=== PATIENT | male | born 1985 | race African-American/Black ===

== ENCOUNTER 2020-05-14 07:53 | Emergency (ER) | payer MEDICAID ==
[~2020-05-14] VITALS: Ht 170.2 cm; Wt 102.1 kg
[2020-05-14 08:32] VITALS: BP 151/95
== END 2020-05-14 09:37 | disposition home or self-care (01) ==
LOC: ER 07:53
DX: Q70.32 Webbed toes, left foot (principal); L30.4 Erythema intertrigo; F17.210 Nicotine dependence, cigarettes, uncomplicated